=== PATIENT | female | born 2000 | race African-American/Black ===

== ENCOUNTER 2022-10-12 20:35 | Emergency (ER) | payer BC, SELFPAY ==
--- NOTE | ~2022-10-12 | XR_ITS ---
EXAMINATION: XR ankle RT min 3V DATE: 10/12/2022 20:57 INDICATION: Ankle injury and pain. TECHNIQUE: 4 views of right ankle were obtained. COMPARISON: None. FINDINGS: Bone alignment is normal. No fracture. Joint spaces are normal. There is ankle soft tissue swelling. IMPRESSION: 1. No fracture. Reviewed, dictated and finalized at location E. IMPRESSION: 1. No fracture.
[2022-10-12 20:37] VITALS: BP 147/84; PULSE 90; RESP 14; TEMP 36.2; O2SAT 100
--- NOTE | 2022-10-12 21:23 | ED.LOWEXIN ---
HPI - Extremity Injury (Lower) General Chief Complaint: Extremity Injury, Lower <Nenita Wyman PA-C - Last Filed: 10/12/22 21:28> Stated Complaint: R ankle pain <MALORIE Aden Last Filed: 10/12/22 21:28> Time Seen by Provider: 10/12/22 20:44 <MALORIE Aden Last Filed: 10/12/22 21:28> History of Present Illness HPI Narrative: 22-year-old female reports for evaluation for right ankle pain x4 days. Patient states 4 days ago, she was going down the stairs and accidentally inverted her ankle. She is reporting pain to her lateral malleolus. States she has been ambulating since the incident. She denies paresthesias, edema, other pain to her lower extremity. <Nenita Wyman PA-C - Last Filed: 10/12/22 21:28> Related Data Allergies/Adverse Reactions: Allergies Allergy/AdvReac Type Severity Reaction Status Date / Time No Known Allergies Allergy Verified 10/12/22 20:40 <MALORIE Aden Last Filed: 10/12/22 21:28> Review of Systems Review of Systems: CONSTITUTIONAL: Denies fever, chills EYES: Denies visual changes, redness, or discharge. ENT: Denies rhinorrhea, congestion, sore throat, or otalgia. CARDIOVASCULAR: Denies chest pain, palpitations, or edema. RESPIRATORY: Denies cough or dyspnea. GASTROINTESTINAL: Denies abdominal pain, nausea, vomiting, or diarrhea. GENITOURINARY: Denies dysuria or hematuria. SKIN: Denies rash or itching. MUSCULOSKELETAL: See HPI NEUROLOGIC: Denies headache, numbness, dizziness, or weakness. PSYCHIATRIC: Denies anxiety or depression. <MALORIE Aden Last Filed: 10/12/22 21:28> Exam Narrative: GENERAL: Well-appearing, in no acute distress. Patient resting comfortably in exam bed. She is pleasant and conversational. HEAD: Normocephalic NECK: Supple. CHEST: No respiratory distress. Clear to auscultation, no adventitious breath sounds. HEART: Regular rate and rhythm. No murmur heard. Normal peripheral pulses. EXTREMITIES: Tenderness over the right lateral malleolus without edema, ecchymosis, warmth. No tenderness to remainder of lower extremity. No tenderness to proximal tibia or fibula. Negative Cantor's. DP pulse 2+. Cap refill less than 2. Sensation intact throughout. Full range of motion of ankle and toes. She is ambulatory. SKIN: Warm, dry, no rash. NEURO: No focal deficits. Alert and oriented x3. PSYCH: Normal mood and affect. <Nenita Wyman PA-C - Last Filed: 10/12/22 21:28> Course OFFENDER JOB RETENTION SPECIALIST/PA Physician Supervision This is a was performed by both a physician and an APC. I performed all aspects of the MDM as documented w/ the following additions: 22-year-old presenting with ankle pain. She is ambulatory. X-rays negative. Patient discharged with ankle sprain instructions. All questions answered. Patient in agreement w/ disposition. <Guero Shen MD - Last Filed: 10/13/22 06:05> Vital Signs Vital signs: Vital Signs Temperature 97.2 F L 10/12/22 20:37 Pulse Rate 90 10/12/22 20:37 Respiratory Rate 14 10/12/22 20:37 Blood Pressure 147/84 H 10/12/22 20:37 Pulse Oximetry 100 10/12/22 20:37 Oxygen Delivery Room Air 10/12/22 20:37 Temperature 97.2 F L 10/12/22 20:37 Pulse Rate 90 10/12/22 20:37 Respiratory Rate 14 10/12/22 20:37 Blood Pressure 147/84 H 10/12/22 20:37 Pulse Oximetry 100 10/12/22 20:37 Oxygen Delivery Room Air 10/12/22 20:37 <Nenita Wyman PA-C - Last Filed: 10/12/22 21:28> Vital Signs Temperature 97.2 F L 10/12/22 20:37 Pulse Rate 90 10/12/22 20:37 Respiratory Rate 14 10/12/22 20:37 Blood Pressure 147/84 H 10/12/22 20:37 Pulse Oximetry 100 10/12/22 20:37 Oxygen Delivery Room Air 10/12/22 20:37 Temperature 97.2 F L 10/12/22 20:37 Pulse Rate 90 10/12/22 20:37 Respiratory Rate 14 10/12/22 20:37 Blood Pressure 147/84 H 10/12/22 20:37 Pulse Oximetry 100 10/12/22 20:37
== END 2022-10-12 21:44 | disposition home or self-care (01) ==
PROVIDERS: Emergency Provider Physician Assistant
DX: S93.401A Sprain of unspecified ligament of right ankle, initial encounter (principal); S96.911A Strain of unspecified muscle and tendon at ankle and foot level, right foot, initial encounter; X50.9XXA Other and unspecified overexertion or strenuous movements or postures, initial encounter
CPT/HCPCS: 73610; 99283

== ENCOUNTER 2023-06-11 09:33 | Emergency (ER) | payer OTHER, SELFPAY ==
[2023-06-11 10:03] VITALS: BP 120/88; PULSE 112; RESP 16; TEMP 36.7; O2SAT 100
[2023-06-11 11:09] LABS: Strep Group A RT-PCR NOT DETECTED (Negative)
[2023-06-11 11:18] VITALS: BP 131/94; PULSE 99; RESP 19; TEMP 36.7; O2SAT 100; O2SAT 99
[2023-06-11 11:19] LABS: Influenza A QL RT-PCR Negative (Negative); Influenza B QL RT-PCR Negative (Negative); RSV RNA, RT-PCR Negative (Negative); SARS-CoV-2 RNA PCR Negative (Negative)
--- NOTE | 2023-06-11 11:29 | ED.GENADULT ---
HPI - General Adult General Chief complaint: Unspecified Stated complaint: trouble swallowing, neck, eye, ear pain Time Seen by Provider: 06/11/23 10:14 History of Present Illness HPI narrative: 23-year-old female presents to the emergency room for acute onset of sore throat, postnasal drip, sinus congestion, cough began yesterday. Patient states that she took DayQuil yesterday with little improvement. Patient denies any shortness of breath, difficulty breathing, or fevers. Related Data Allergies Allergy/AdvReac Type Severity Reaction Status Date / Time No Known Allergies Allergy Verified 10/12/22 20:40 Review of Systems Review of Systems: CONSTITUTIONAL: Denies fever, chills, or sweats. EYES: Denies visual changes, redness, or discharge. ENT: Endorses rhinorrhea, congestion, sore throat, and otalgia. CARDIOVASCULAR: Denies chest pain, palpitations, or edema. RESPIRATORY: Endorses cough GASTROINTESTINAL: Denies abdominal pain, nausea, vomiting, or diarrhea. GENITOURINARY: Denies dysuria or hematuria. SKIN: Denies rash or itching. MUSCULOSKELETAL: Denies back pain, joint pain, or myalgia. NEUROLOGIC: Denies headache, numbness, dizziness, or weakness. PSYCHIATRIC: Denies anxiety or depression. Exam Narrative: GENERAL: Well-appearing, well-nourished, no physical limitations, and in no acute distress. HEAD: Normocephalic, atraumatic. EYES: Conjunctivae normal, PERRLA and EOMI. ENT: External nose normal, Nares clear, clear rhinorrhea. Mucous membranes moist. Oropharynx without tonsillar hypertrophy exudate or other lesions. External ears normal, bilateral TMs normal bilaterally with clear effusion the left ear NECK: Supple. No meningeal signs. No adenopathy or masses. No carotid bruits or JVD CHEST: Clear to auscultation. No respiratory distress. No wheezes rales or rhonchi. No tenderness. HEART: Regular rate and rhythm. No murmur heard. Normal peripheral pulses. EXTREMITIES: Normal range of motion. No edema. No clubbing or cyanosis SKIN: Warm, dry, no rash. No noted wounds NEURO: No focal deficits. Alert and oriented x3. MAEW. CN's II-XI intact bilaterally, normal gait PSYCH: Cooperative. Normal mood and affect. Course Vital Signs Vital signs: Vital Signs Temperature 36.7 C 06/11/23 10:03 Pulse Rate 112 H 06/11/23 10:03 Respiratory Rate 16 06/11/23 10:03 Blood Pressure 120/88 06/11/23 10:03 Pulse Oximetry 100 06/11/23 10:03 Oxygen Delivery Room Air 06/11/23 10:03 Temperature 36.7 C 06/11/23 11:18 Pulse Rate 99 06/11/23 11:18 Respiratory Rate 19 06/11/23 11:18 Blood Pressure 131/94 H 06/11/23 11:18 Pulse Oximetry 100 06/11/23 11:18 Oxygen Delivery Room Air 06/11/23 11:18 Medical Decision Making MDM Narrative Medical decision making narrative: Nontoxic 23-year-old female present to the emergency room with URI symptoms. COVID, flu strep POC is negative. Patient likely has a viral URI. Encouraged patient to take Sudafed 30 mg tablets every 4-6 hours. Will provide cough syrup and a short course of steroids. Discussed course of illness with patient, likely will have symptoms for 10-12 days. Vital Signs Vital Signs: Vital Signs Temperature 36.7 C 06/11/23 10:03 Pulse Rate 112 H 06/11/23 10:03 Respiratory Rate 16 06/11/23 10:03 Blood Pressure 120/88 06/11/23 10:03 Pulse Oximetry 100 06/11/23 10:03 Oxygen Delivery Room Air 06/11/23 10:03 Temperature 36.7 C 06/11/23 11:18 Pulse Rate 99 06/11/23 11:18 Respiratory Rate 19 06/11/23 11:18 Blood Pressure 131/94 H 06/11/23 11:18 Pulse Oximetry 100 06/11/23 11:18 Oxygen Delivery Room Air 06/11/23 11:18 Lab Data Labs: Lab Results 06/11/23 Range/Units 10:33 Influenza A (RT-PCR) Negative (Negative) Influenza B (RT-PCR) Negative (Negative) RSV (RT-PCR) Negative (Negative) SARS-CoV-2 RNA (RT-PCR) Negative (Negative) Group A Strep (PCR) Not
[2023-06-11 11:43] VITALS: BP 128/83; PULSE 89; RESP 17; TEMP 36.7; O2SAT 100
== END 2023-06-11 11:45 | disposition home or self-care (01) ==
PROVIDERS: Emergency Provider Nurse Practitioner Family
DX: J06.9 Acute upper respiratory infection, unspecified (principal); Z20.822 Contact with and (suspected) exposure to COVID-19
CPT/HCPCS: 87637; 87651; 99283

== ENCOUNTER 2023-08-11 10:01 | Emergency (ER) | payer OTHER, SELFPAY ==
[2023-08-11 10:04] VITALS: BP 130/87; PULSE 78; RESP 18; TEMP 37.1; O2SAT 99
[2023-08-11 10:32] VITALS: BP 134/87; PULSE 84; RESP 16; TEMP 36.7; O2SAT 98
--- NOTE | 2023-08-11 10:52 | ED_ITS ---
HPI - Eye Problem General Chief complaint: Eye Problems Stated complaint: eye scratch Time Seen by Provider: 08/11/23 10:14 History of Present Illness HPI Narrative: Pt presents with eye discomfort and redness after getting lashes put on eyes. Pt thinks maybe her eye got scratched. Pt denies blurred vison or MCCOY. Related Data Allergies Allergy/AdvReac Type Severity Reaction Status Date / Time No Known Allergies Allergy Verified 08/11/23 10:11 Review of Systems Review of Systems: All systems reviewed & are unremarkable except as noted in HPI and below Exam Const: General: healthy appearing and no acute distress Nutritional Appear ance: well nourished Orientation/consciousness: patient oriented x3 Limitations: no limitations Eyes: Conjunctivae: conjunctival abnormality right (injected lower eye only where lower lid touches sclera) conjunctival injection Pupils: Equal, round and reactive pupils present EOM: EOMs intact bilaterally Direct Ophthalmoscopy: no photophobia Course Vital Signs Vital signs: Vital Signs Temperature 98.8 F 08/11/23 10:04 Pulse Rate 78 08/11/23 10:04 Respiratory Rate 18 08/11/23 10:04 Blood Pressure 130/87 08/11/23 10:04 Pulse Oximetry 99 08/11/23 10:04 Oxygen Delivery Room Air 08/11/23 10:04 Temperature 98.1 F 08/11/23 10:32 Pulse Rate 84 08/11/23 10:32 Respiratory Rate 16 08/11/23 10:32 Blood Pressure 134/87 08/11/23 10:32 Pulse Oximetry 98 08/11/23 10:32 Oxygen Delivery Room Air 08/11/23 10:04 Procedures Other Procedure Procedure 1: Other Procedure: tetracaine and fluorescein applied. right eye observed under slit lamp and UV light no corneal abrasion or FB noted. MDM - Eye Problem MDM Narrative Medical decision making narrative: Pt has no eveidence of corneal abrasion or FB on slit lamp. suspect allergic rxn home on topical antihistamines and antibiotics Discharge Plan Discharge Clinical Impression: Allergic conjunctivitis Patient Disposition: Home, Self-Care Condition: Stable Instructions: Antibiotic Form, Conjunctivitis (ED) Prescriptions: New olopatadine [Pataday Once Daily Relief] 0.2 % drops 1 drp RIGHT EYE DAILY Qty: 2.5 0RF gentamicin 0.3 % drops 1 drp RIGHT EYE Q4H Qty: 5 0RF No Action prednisone 20 mg tablet 60 mg PO DAILY 5 Days Qty: 15 0RF promethazine-DM 6.25-15 mg/5 mL syrup 5 ml PO Q4-6H PRN (Reason: cough) Qty: 118 0RF Follow-up/Referrals: UNKNOWN,DOCTOR [Primary Care Provider] - Stand Alone Forms: Work/School Release IP
== END 2023-08-11 11:14 | disposition home or self-care (01) ==
LOC: ANHED 11:10
PROVIDERS: Emergency Provider Emergency Medicine
DX: H10.11 Acute atopic conjunctivitis, right eye (principal)
CPT/HCPCS: 99283; A9270

== ENCOUNTER 2023-09-14 08:43 | Outpatient (CLI) | payer OTHER, SELFPAY ==
[2023-09-14 15:11] LABS: Hematocrit 41.5 % (37.0-47.0); Hemoglobin 12.8 g/dL (12.0-15.0); Mean Corpuscular HGB Conc 30.8 g/dl (32-36); Mean Corpuscular Hemoglobin 28.9 pg (26-34); Mean Corpuscular Volume 93.7 fl (80-100); Mean Platelet Volume 9.6 fl (7.4-10.4); Platelet Count Result 355 k/mm3 (150-375); Red Blood Count 4.43 M/mm3 (4.2-5.4); Red Cell Distribution Width 12.9 % (11.5-14.5); White Blood Count 6.2 K/mm3 (4.5-10.0)
[2023-09-14 15:22] LABS: Alanine Aminotransferase 43 U/L (6-35); Albumin Level 4.3 g/dL (3.5-5.1); Alkaline Phosphatase 74 U/L (38-126); Anion Gap 11 mmol/L (4-12); Aspartate Amino Transferase 62 U/L (14-36); Bilirubin,Total 0.3 mg/dL (0.2-1.3); Blood Urea Nitrogen 17 mg/dL (7-17); Calcium 9.3 mg/dL (8.4-10.2); Carbon Dioxide 23 mmol/L (22-30); Chloride 103 mmol/L (98-107); Cholesterol 145 mg/dL (0-200); Estimated Glomerular Filt Rate > 60; Glucose 70 mg/dL (65-110); HDL Direct 74 mg/dL; Potassium 3.8 mmol/L (3.4-5.0); Sodium 137 mmol/L (137-145); Triglycerides 40 mg/dL (<150)
[2023-09-14 15:34] LABS: LDL Cholesterol Direct 59 mg/dL
[2023-09-15 08:57] LABS: Hemoglobin A1C 5.6 % (<5.7)
== END 2023-09-14 08:44 | disposition home or self-care (01) ==
LOC: ANHGOSHLAB 08:45
PROVIDERS: Visit Provider Nurse Practitioner Family
DX: R51.9 Headache, unspecified (principal); M25.512 Pain in left shoulder; Z76.89 Persons encountering health services in other specified circumstances; Z68.27 Body mass index [BMI] 27.0-27.9, adult; M54.50 Low back pain, unspecified; Z13.0 Encounter for screening for diseases of the blood and blood-forming organs and certain disorders involving the immune mechanism; Z13.228 Encounter for screening for other metabolic disorders; Z13.1 Encounter for screening for diabetes mellitus; Z13.220 Encounter for screening for lipoid disorders
CPT/HCPCS: 36415; 80053; 80061; 83036; 85027

== ENCOUNTER 2023-10-05 12:31 | Outpatient (CLI) | payer OTHER, SELFPAY | END 2023-10-05 12:32 | disposition home or self-care (01) | LOC: ANHLAB 12:34 | PROVIDERS: Visit Provider Obstetrics & Gynecology | DX: O26.859 Spotting complicating pregnancy, unspecified trimester (principal); Z3A.00 Weeks of gestation of pregnancy not specified | CPT/HCPCS: 36415; 84702; 85461; 86850; 86900; 86901 ==

== ENCOUNTER 2023-10-07 12:15 | Outpatient (CLI) | payer OTHER, SELFPAY | END 2023-10-07 12:16 | disposition home or self-care (01) | LOC: ANHLAB 12:17 | PROVIDERS: Visit Provider Obstetrics & Gynecology | DX: O20.0 Threatened abortion (principal) | CPT/HCPCS: 36415; 84702 ==

== ENCOUNTER 2023-10-23 12:01 | Emergency (ER) | payer OTHER, SELFPAY ==
--- NOTE | ~2023-10-23 | US_ITS ---
US OB <=14 wk fetus w TV Ordering provider: Eileen Cedeno PA-C History: . 4 weeks, miscarriage . Comparison: None. Technique: Transabdominal and endovaginal ultrasound of the pelvis (Doppler ultrasound interrogation techniques used as needed for this exam.) FINDINGS: CERVIX: Normal. UTERUS: Measures 7.3x 3.6x 5.9 cm in length which is within normal limits and is anteverted. No myom etrial masses. Possible arcuate or septate uterus. ENDOMETRIUM: Measures 6 mm. No intrauterine . Heterogenous echogenicity is noted which is mo st likely blood products. CUL DE SAC: No free fluid. RIGHT OVARY: Normal in size measuring 2.4x 1.2x 2.1 centimeter. Normal echotexture. Doppler vascular flow present. LEFT OVARY: Normal in size measuring 3.2x 1.1x 2.4 cm. Normal echotexture. Doppler vascular flow pres ent. ADNEXA: Normal. No mass. IMPRESSION: Highly suggestive of arcuate uterus with endometrial blood products. Clinical correlation advised. No intrauterine . Otherwise, normal pelvic ultrasound. Reviewed, dictated and finalized at location A. IMPRESSION: Highly suggestive of arcuate uterus with endometrial blood products. Clinical c orrelation advised. No intrauterine . Otherwise, normal pelvic ultraso und.
[2023-10-23 13:22] VITALS: BP 129/79; PULSE 78; RESP 16; TEMP 36.6; O2SAT 100
--- NOTE | 2023-10-23 14:20 | ED.PREGNANCY ---
HPI - General Chief complaint: Vaginal Bleeding <MALORIE Pina Last Filed: 10/23/23 19:03> Stated complaint: vaginal bleeding <MALORIE Pina Last Filed: 10/23/23 19:03> Time Seen by Provider: 10/23/23 14:21 <Eileen Cedeno PA-C - Last Filed: 10/23/23 19:03> Focused HPI: Patient is a 23-year-old female, with pmh of anemia, presents the ED with report of vaginal bleeding. Patient is and was approximately 4 weeks gestation. LNMP was at the end of July. She states she has been diagnosed with a miscarriage by [facility] [place]. Was Rx'd vaginal misoprostol 1 week ago and took this as prescribed. She has been having bleeding since last , but states this has become heavier to the point she is not passing large clots. She also reports feeling slightly dizzy and lightheaded with movement. She was sent here for further evaluation and to have her beta hcg level rechecked. Currently seeing Dr. Mccloud with OBGYN GENERAL: Well-appearing, well-nourished, and in no acute distress. HEAD: Normocephalic, atraumatic. CHEST: Clear to auscultation. ?No respiratory distress. HEART: Regular rate and rhythm.? NEURO: ?Alert and oriented x3. Patient screened in triage and initial orders placed.? ?Additional care and disposition to be based upon?diagnostic testing and treatment. <MALORIE Pina Last Filed: 10/23/23 19:03> Source: patient <MALORIE Pina Last Filed: 10/23/23 19:03> Mode of arrival: ambulatory <MALORIE Pina Last Filed: 10/23/23 19:03> Limitations: no limitations <MALORIE Pina Last Filed: 10/23/23 19:03> Related Data Home medications: Home Medications Medication Instructions Recorded Confirmed ferrous sulfate 325 mg (65 mg mg PO 09/02/23 10/21/23 iron) tablet (FeroSul) vit no.95-ferrous tablet PO 09/02/23 10/21/23 fumarate 28 mg-folic acid 800 mcg tablet () <Eileen Cedeno PA-C - Last Filed: 10/23/23 19:03> Allergies/Adverse reactions: Allergies Allergy/AdvReac Type Severity Reaction Status Date / Time No Known Allergies Allergy Verified 10/21/23 13:38 <Eileen Cedeno PA-C - Last Filed: 10/23/23 19:03> Review of Systems Review of Systems: CONSTITUTIONAL: Denies fever GASTROINTESTINAL: Reports pelvic cramping <Vesta Phillip PA-C - Last Filed: 10/23/23 19:20> All systems reviewed & are unremarkable except as noted in HPI and below <Vesta Phillip PA-C - Last Filed: 10/23/23 19:20> PMFSH Past Medical History Medical History: Medical History (Updated 10/23/23 @ 19:11 by Vesta Phillip PA-C) Iron deficiency anemia <Eileen Cedeno PA-C - Last Filed: 10/23/23 19:03> Family History Family History: Family History (Updated 09/02/23 @ 13:40 by Rain Storey) Grandparent Cancer Grandparent Cancer <Eileen Cedeno PA-C - Last Filed: 10/23/23 19:03> Social History Social History: Social History (Updated 09/02/23 @ 13:41 by Rain Storey) Smoking status: Never smoker Alcohol intake: current Substance use: unknown <Eileen Cedeno PA-C - Last Filed: 10/23/23 19:03> Exam Narrative: GENERAL: Well-appearing, well-nourished, and in no acute distress. HEAD: Normocephalic, atraumatic. EYES: EOMI. CHEST: No respiratory distress. HEART: Regular rate ABDOMEN: Soft, nontender, nondistended, normal active bowel sounds. EXTREMITIES: Normal range of motion. No edema. SKIN: Warm, dry, no rash. NEURO: No focal deficits. Alert and oriented x3. PSYCH: Normal mood and affect PELVIC: Scant amount of pink/red blood in the vaginal vault, cervix open <Vesta Phillip PA-C - Last Filed: 10/23/23 19:20> Course Course Emergency Course: Patient updated on workup and agrees with plan of care <Vesta Phillip PA-C - Last Filed:
[2023-10-23 14:58] LABS: Add Urine Microscopic? YES; Appearance Urine Clear (Clear); Bacteria Urine None Seen /hpf; Bilirubin Urine Negative (Negative); Blood Urine 2+ (Negative); Color Urine Yellow (Yellow); Glucose Urine UA Negative (Negative); Ketones Urine Negative (Negative); Leukocyte Esterase Ur Negative LEU/UL (Negative); Nitrate Urine Negative (Negative); Non Pathogenic Casts 0-2; Protein Urine Negative (Negative); RBC Urine 0-2 /hpf (0-2); Specific Grav Ur 1.014 (1.001-1.035); Squamous Epithelial Cell Urine Few /hpf (Few); Urobilinogen Urine 0.2 mg/dL (<2.0); WBC Urine 0-5 /hpf (0-3); pH Urine 7.5 (5.0-9.0)
[2023-10-23 15:06] LABS: Basophils Percent Auto 0.7 % (0.2-1.2); Eosinophils Absolute Auto 0.1 K/mm3 (0-0.3); Eosinophils Percent Auto 1.2 % (0-4.4); Hematocrit 40.9 % (37.0-47.0); Hemoglobin 13.3 g/dL (12.0-15.0); Immature Granulocyte Absolute 0.02 K/mm3 (0.00-0.031); Immature Granulocyte Percent A 0.3 % (0-0.5); Lymphocytes Absolute Auto 2.26 K/mm3 (0.9-3.2); Lymphocytes Percent Auto 39.4 % (18.3-44.2); Mean Corpuscular HGB Conc 32.5 g/dl (32-36); Mean Corpuscular Volume 92.3 fl (80-100); Mean Platelet Volume 8.8 fl (7.4-10.4); Monocytes Absolute Auto 0.3 K/mm3 (0.1-0.6); Monocytes Percent Auto 5.9 % (2.6-8.5); Neutrophils Percent Auto 52.5 % (45.5-73.1); Platelet Count Result 366 k/mm3 (150-375); Red Blood Count 4.43 M/mm3 (4.2-5.4); Red Cell Distribution Width 12.1 % (11.5-14.5); White Blood Count 5.7 K/mm3 (4.5-10.0)
[2023-10-23 15:28] LABS: Alanine Aminotransferase 41 U/L (6-35); Albumin Level 4.3 g/dL (3.5-5.1); Alkaline Phosphatase 67 U/L (38-126); Anion Gap 9 mmol/L (4-12); Aspartate Amino Transferase 33 U/L (14-36); Bilirubin,Total 0.1 mg/dL (0.2-1.3); Blood Urea Nitrogen 9 mg/dL (7-17); Calcium 9.5 mg/dL (8.4-10.2); Carbon Dioxide 28 mmol/L (22-30); Chloride 101 mmol/L (98-107); Estimated CRCL calculation 90 ml/min; Estimated Glomerular Filt Rate > 60; Glucose 118 mg/dL (65-110); Potassium 3.4 mmol/L (3.4-5.0); Sodium 138 mmol/L (137-145)
[2023-10-23 15:29] LABS: Partial Thromboplastin Time 25.8 Seconds (22.3-36.8); Prothrombin Time 13.7 Seconds (11.1-14.7)
[2023-10-23 15:44] LABS: Beta HCG Quantitative 258.87 mIU/ML
[2023-10-23 18:32] VITALS: BP 125/87; PULSE 85; RESP 20; O2SAT 100
[2023-10-23 18:46] VITALS: BP 127/87; PULSE 92; RESP 20; O2SAT 100
[2023-10-23 19:31] VITALS: BP 121/79; PULSE 82; RESP 18; O2SAT 100
[2023-10-23 19:46] VITALS: BP 113/83; PULSE 86; RESP 22; O2SAT 100
[2023-10-23 19:58] VITALS: BP 113/83; PULSE 94; RESP 19; TEMP 36.8; O2SAT 100
== END 2023-10-23 19:59 | disposition home or self-care (01) ==
PROVIDERS: Physician Assistant; Emergency Provider Physician Assistant; PCP Nurse Practitioner Family
DX: O03.4 Incomplete spontaneous abortion without complication (principal)
CPT/HCPCS: 36415; 76801; 76817; 80053; 81001; 84702; 85025; 85461; 85610; 85730; 86850; 86900; 86901; 99284

== ENCOUNTER 2023-11-04 08:41 | Outpatient (CLI) | payer OTHER, SELFPAY ==
[2023-11-04 19:33] LABS: Basophils Percent Auto 0.6 % (0.2-1.2); Eosinophils Absolute Auto 0.1 K/mm3 (0-0.3); Eosinophils Percent Auto 1.4 % (0-4.4); Hematocrit 40.6 % (37.0-47.0); Hemoglobin 12.6 g/dL (12.0-15.0); Immature Granulocyte Absolute 0.03 K/mm3 (0.00-0.031); Immature Granulocyte Percent A 0.6 % (0-0.5); Lymphocytes Absolute Auto 1.89 K/mm3 (0.9-3.2); Lymphocytes Percent Auto 38.1 % (18.3-44.2); Mean Corpuscular Hemoglobin 29.1 pg (26-34); Mean Corpuscular Volume 93.8 fl (80-100); Mean Platelet Volume 9.8 fl (7.4-10.4); Monocytes Absolute Auto 0.5 K/mm3 (0.1-0.6); Monocytes Percent Auto 10.1 % (2.6-8.5); Neutrophils Absolute Auto 2.4 K/mm3 (1.3-6.7); Neutrophils Percent Auto 49.2 % (45.5-73.1); Platelet Count Result 372 k/mm3 (150-375); Red Blood Count 4.33 M/mm3 (4.2-5.4); Red Cell Distribution Width 12.4 % (11.5-14.5)
[2023-11-04 19:43] LABS: Iron 156 ug/dL (37-170)
[2023-11-04 19:52] LABS: Percent Iron Saturation 48 % (20-50)
[2023-11-04 21:19] LABS: Alanine Aminotransferase 41 U/L (6-35); Albumin Level 4.3 g/dL (3.5-5.1); Alkaline Phosphatase 66 U/L (38-126); Anion Gap 10 mmol/L (4-12); Aspartate Amino Transferase 40 U/L (14-36); Bilirubin,Total 0.2 mg/dL (0.2-1.3); Blood Urea Nitrogen 18 mg/dL (7-17); Calcium 9.2 mg/dL (8.4-10.2); Carbon Dioxide 25 mmol/L (22-30); Chloride 102 mmol/L (98-107); Estimated Glomerular Filt Rate > 60; Glucose 86 mg/dL (65-110); Potassium 4.1 mmol/L (3.4-5.0); Sodium 137 mmol/L (137-145)
== END 2023-11-04 08:42 | disposition home or self-care (01) ==
LOC: ANHGOSHLAB 08:42
PROVIDERS: PCP Nurse Practitioner Family; Visit Provider Nurse Practitioner Family
DX: O03.9 Complete or unspecified spontaneous abortion without complication (principal); R74.8 Abnormal levels of other serum enzymes; I95.1 Orthostatic hypotension
CPT/HCPCS: 36415; 80053; 82248; 82728; 83540; 83550; 85025

== ENCOUNTER 2023-11-04 14:21 | Emergency (ER) | payer OTHER, SELFPAY ==
[2023-11-04 14:24] VITALS: BP 148/88; PULSE 88; RESP 16; TEMP 36.8; O2SAT 100
[2023-11-04 16:00] VITALS: BP 126/78; PULSE 78; RESP 16; TEMP 36.6; O2SAT 100
--- NOTE | 2023-11-04 16:08 | ECG_ITS ---
Test Date: 2023-11-04 16:37:32 Measurements Intervals Ackley Rate: 78 P: 49 MD: 131 QRS: 38 QRSD: 75 T: 28 QT: 376 QTc: 430 Interpretive Statements SINUS RHYTHM NONSPECIFIC T-WAVE ABNORMALITY- ANTERIOR LEADS BORDERLINE ECG No previous ECG available for comparison Electronically Signed On 11-04-2023 20:08:42 CDT by Sid Plunkett D.O.
[2023-11-04] MEDS: ONDANSETRON HCL ODT 4 MG TABLET PO (16:21)
[2023-11-04] MEDS: LACTATED RINGERS 1,000 ML 999 ML IV CONT (16:50)
[2023-11-04 17:00] VITALS: BP 126/80; PULSE 74; RESP 16; TEMP 36.6; O2SAT 100
[2023-11-04 17:05] LABS: Basophils Percent Auto 0.4 % (0.2-1.2); Eosinophils Absolute Auto 0.1 K/mm3 (0-0.3); Eosinophils Percent Auto 0.7 % (0-4.4); Hematocrit 42.6 % (37.0-47.0); Hemoglobin 13.2 g/dL (12.0-15.0); Immature Granulocyte Absolute 0.02 K/mm3 (0.00-0.031); Immature Granulocyte Percent A 0.3 % (0-0.5); Lymphocytes Absolute Auto 2.22 K/mm3 (0.9-3.2); Lymphocytes Percent Auto 32.6 % (18.3-44.2); Mean Corpuscular Hemoglobin 28.5 pg (26-34); Mean Platelet Volume 9.2 fl (7.4-10.4); Monocytes Absolute Auto 0.6 K/mm3 (0.1-0.6); Monocytes Percent Auto 8.2 % (2.6-8.5); Neutrophils Absolute Auto 3.9 K/mm3 (1.3-6.7); Neutrophils Percent Auto 57.8 % (45.5-73.1); Platelet Count Result 404 k/mm3 (150-375); Red Blood Count 4.63 M/mm3 (4.2-5.4); Red Cell Distribution Width 12.5 % (11.5-14.5); White Blood Count 6.8 K/mm3 (4.5-10.0)
[2023-11-04 17:19] LABS: Alanine Aminotransferase 44 U/L (6-35); Albumin Level 4.7 g/dL (3.5-5.1); Alkaline Phosphatase 76 U/L (38-126); Anion Gap 9 mmol/L (4-12); Aspartate Amino Transferase 38 U/L (14-36); Bilirubin,Total 0.3 mg/dL (0.2-1.3); Blood Urea Nitrogen 14 mg/dL (7-17); Calcium 9.6 mg/dL (8.4-10.2); Carbon Dioxide 27 mmol/L (22-30); Chloride 101 mmol/L (98-107); Estimated Glomerular Filt Rate > 60; Glucose 89 mg/dL (65-110); Potassium 3.7 mmol/L (3.4-5.0); Sodium 137 mmol/L (137-145)
[2023-11-04 17:35] LABS: Beta HCG Quantitative 9.87 mIU/ML
--- NOTE | 2023-11-04 17:55 | ED.DIZZY ---
HPI - Dizziness General Chief Complaint: Dizziness Stated Complaint: dizziness Time Seen by Provider: 11/04/23 16:08 History of Present Illness HPI Narrative: Patient presents here with some slight lightheadedness and nausea, this happened while she was walking to work. She will get a sensation that she feels like she may pass out. This has been ongoing for multiple weeks. No chest pain, shortness of breath, is worse when she is walking or standing, does not think she has any cough or urinary symptoms, she would like to be checked her beta hcg / hormone. Related Data Home Medications Medication Instructions Recorded Confirmed ferrous sulfate 325 mg (65 mg mg PO 09/02/23 10/21/23 iron) tablet (FeroSul) vit no.95-ferrous tablet PO 09/02/23 10/21/23 fumarate 28 mg-folic acid 800 mcg tablet () Allergies Allergy/AdvReac Type Severity Reaction Status Date / Time No Known Allergies Allergy Verified 11/04/23 14:26 Review of Systems Review of Systems: All systems reviewed & are unremarkable except as noted in HPI and below PMFSH Past Medical History Medical History Iron deficiency anemia Family History Family History Grandparent Cancer Grandparent Cancer Social History Social History Smoking status: Never smoker Alcohol intake: current Substance use: unknown Agree to blood products: Yes Exam Narrative: EXAMINATION OF ORGAN SYSTEMS/BODY AREAS: Constitutional: Vital signs per nursing GENERAL:[No acute distress, non-toxic appearing.] HEAD: Normal with no signs of head trauma. EYES: EOMI, conjunctiva normal ENT: Hearing grossly intact LUNGS: Nonlabored breathing. HEART: [Regular rate and rhythm] ABD: No distension EXT: Normal range of motion SKIN: [No rashes or lesions.] NEURO: [Alert and oriented x 3. No gross focal sensory or strength deficits.] Clear speech. Ambulating with normal steady gait PSYCH: Normal affect Course Vital Signs Vital signs: Vital Signs Temperature 98.2 F 11/04/23 14:24 Pulse Rate 88 11/04/23 14:24 Respiratory Rate 16 11/04/23 14:24 Blood Pressure 148/88 H 11/04/23 14:24 Pulse Oximetry 100 11/04/23 14:24 Oxygen Delivery Room Air 11/04/23 14:24 Temperature 97.8 F 11/04/23 17:00 Pulse Rate 74 11/04/23 17:00 Respiratory Rate 16 11/04/23 17:00 Blood Pressure 126/80 11/04/23 17:00 Pulse Oximetry 100 11/04/23 17:00 Oxygen Delivery Room Air 11/04/23 14:24 MDM - Dizziness MDM Narrative Medical decision making narrative: Patient presenting here with dizziness for last month and some slight nausea, she has also had a repeat hCG. Labs are within acceptable limits, her HCG is now almost not detectable, EKG here shows normal sinus rhythm rate 78, RI QRS, QTC intervals normal, no ST elevations depressions, on my independent interpretation essentially normal EKG. Fluids given, and on re-evaluation she states she feels better. She is ambulating with steady gait, to and from the bathroom I do feel she is stable for discharge with return precautions and follow-up to PCP, she is agreeable to this plan. Lab Data 11/04/23 16:53 11/04/23 16:53 Labs: Lab Results 11/04/23 Range/Units 16:53 WBC 6.8 (4.5-10.0) K/mm3 RBC 4.63 (4.2-5.4) M/mm3 Hgb 13.2 (12.0-15.0) g/dL Hct 42.6 (37.0-47.0) % MCV 92.0 (80-100) fl MCH 28.5 (26-34) pg MCHC 31.0 L (32-36) g/dl RDW 12.5 (11.5-14.5) % Plt Count 404 H (150-375) k/mm3 MPV 9.2 (7.4-10.4) fl Immature Gran % (Auto) 0.3 (0-0.5) % Neut % (Auto) 57.8 (45.5-73.1) % Lymph % (Auto) 32.6 (18.3-44.2) % Harvey % (Auto) 8.2 (2.6-8.5) % Eos % (Auto) 0.7 (0-4.4) % Baso % (Auto) 0.4 (0.2-1.2) % Lymph # (Auto) 2.22 (0.9-3.2
== END 2023-11-04 18:03 | disposition home or self-care (01) ==
PROVIDERS: Emergency Provider Emergency Medicine; PCP Nurse Practitioner Family
DX: R42 Dizziness and giddiness (principal)
CPT/HCPCS: 36415; 80053; 82248; 82728; 83540; 83550; 84702; 85025; 93005; 96360; 99283; A9270; J7120

== ENCOUNTER 2023-11-10 10:18 | Emergency (ER) | payer OTHER, SELFPAY ==
--- NOTE | ~2023-11-10 | XR_ITS ---
EXAMINATION: XR chest 2V Exam Date/Time: 11/10/2023 15:10 CDT HISTORY: chest pain, ANXIETY Comparison: 02/25/2023. RESULT: Lines, tubes, and devices: None. Lungs and pleura: Clear. Cardiomediastinal silhouette: Stable. Other: No acute osseous or upper abdominal finding. IMPRESSION: No acute cardiopulmonary process. Reviewed, dictated and finalized at location K.
[2023-11-10 10:27] VITALS: BP 142/89; PULSE 95; RESP 18; TEMP 36.5; O2SAT 98
--- NOTE | 2023-11-10 14:29 | ED.DIZZY ---
HPI - Dizziness General Chief Complaint: Dizziness <Nenita Wyman PA-C - Last Filed: 11/10/23 14:40> Stated Complaint: lightheadedness <Nenita Wyman PA-C - Last Filed: 11/10/23 14:40> Time Seen by Provider: 11/10/23 16:15 <Nenita Wyman PA-C - Last Filed: 11/10/23 14:40> Focused HPI: 23-year-old female with no past medical history presents to the emergency department for lightheadedness and dizziness for several weeks. Patient had a positive test in the beginning of September. She started spotting was felt she is having a miscarriage, was prescribed Cipro stool which she took began having heavy bleeding. She is seen in our emergency department October 22 where workup was significant for being positive blood and endometrial blood products concerning for incomplete . Patient was advised follow-up with her OBGYN. OB is Dr. Mccloud . She has been having serial HCGs checked which have been down trending and states her vaginal bleeding discontinued a couple weeks ago. She reports intermittent bloody discharge. She is also reporting lower abdominal cramping. She states when she is standing for long periods of time or walking she becomes very lightheaded and feels like she is going to pass out but has not passed out. She is also reporting some chest pain that is in the center of her chest and worse when she is anxious and stressed. She denies lower extremity edema, recent sores recent hospitalizations, history of DVT or hemoptysis, cough or congestion, fever. She is PERC negative. GENERAL: Well-appearing, well-nourished, and in no acute distress. HEAD: Normocephalic, atraumatic. CHEST: Clear to auscultation. ?No respiratory distress. ABD: Normoactive bowel sounds. Abdomen soft with no tenderness. No rebound guarding or rigidity. CVA tenderness. HEART: Regular rate and rhythm.? NEURO: ?Alert and oriented x3. Patient screened in triage and initial orders placed.? ?Additional care and disposition to be based upon?diagnostic testing and treatment. <Nenita Wyman PA-C - Last Filed: 11/10/23 14:40> Source: patient and family (grandmother) <Ann Mayer MD - Last Filed: 11/11/23 07:23> Mode of arrival: ambulatory <Ann Mayer MD - Last Filed: 11/11/23 07:23> Limitations: no limitations <Ann Mayer MD - Last Filed: 11/11/23 07:23> History of Present Illness HPI Narrative: Agree with the above with the following additions/corrections: Describes it as both a dizziness and lightheadedness. States she feels at times like she might faint but no syncope. Seen multiple times for the same. States she has followed up with her PCP Therese Webb and her ObGyn Dr Mccloud. Has not seen neuro or ENT. No disorientation/confusion. Today she also states she is having ringing in her right ear and right ear pain and pain behind her right ear. No fever. Unsure if any hearing changes. Did not have recurrent ear infections as a child. Had her first ear infection a few months ago. <Ann Mayer MD - Last Filed: 11/11/23 07:23> Related Data Home Medications: Home Medications Medication Instructions Recorded Confirmed ferrous sulfate 325 mg (65 mg mg PO 09/02/23 10/21/23 iron) tablet (FeroSul) vit no.95-ferrous tablet PO 09/02/23 10/21/23 fumarate 28 mg-folic acid 800 mcg tablet () <Nenita Wyman PA-C - Last Filed: 11/10/23 14:40> Allergies/Adverse Reactions: Allergies Allergy/AdvReac Type Severity Reaction Status Date / Time No Known Allergies Allergy Verified 11/04/23 14:26 <Nenita Wyman PA-C - Last Filed: 11/10/23 14:40> [facility] Past Medical History Medical History: Medical History Dizziness Iron deficiency anemia Light-headed <Nenita Wyman PA-C - Last Filed: 11/10/23 14:40> Family History Family History:
[2023-11-10 14:35] VITALS: BP 121/79; PULSE 88; RESP 16; O2SAT 100
[2023-11-10 14:46] LABS: Basophils Percent Auto 0.5 % (0.2-1.2); Eosinophils Absolute Auto 0.1 K/mm3 (0-0.3); Eosinophils Percent Auto 0.8 % (0-4.4); Hematocrit 42.3 % (37.0-47.0); Hemoglobin 13.7 g/dL (12.0-15.0); Immature Granulocyte Absolute 0.02 K/mm3 (0.00-0.031); Immature Granulocyte Percent A 0.3 % (0-0.5); Lymphocytes Absolute Auto 2.13 K/mm3 (0.9-3.2); Lymphocytes Percent Auto 34.1 % (18.3-44.2); Mean Corpuscular HGB Conc 32.4 g/dl (32-36); Mean Corpuscular Hemoglobin 29.7 pg (26-34); Mean Corpuscular Volume 91.8 fl (80-100); Monocytes Absolute Auto 0.4 K/mm3 (0.1-0.6); Monocytes Percent Auto 7.1 % (2.6-8.5); Neutrophils Absolute Auto 3.6 K/mm3 (1.3-6.7); Neutrophils Percent Auto 57.2 % (45.5-73.1); Platelet Count Result 364 k/mm3 (150-375); Red Blood Count 4.61 M/mm3 (4.2-5.4); Red Cell Distribution Width 12.4 % (11.5-14.5); White Blood Count 6.2 K/mm3 (4.5-10.0)
[2023-11-10 14:52] LABS: Add Urine Microscopic? NO; Appearance Urine Clear (Clear); Bilirubin Urine Negative (Negative); Blood Urine Negative (Negative); Color Urine Yellow (Yellow); Glucose Urine UA Negative (Negative); Ketones Urine Negative (Negative); Leukocyte Esterase Ur Negative LEU/UL (Negative); Nitrate Urine Negative (Negative); Protein Urine Negative (Negative); Specific Grav Ur 1.022 (1.001-1.035); Urobilinogen Urine 0.2 mg/dL (<2.0)
[2023-11-10 14:56] LABS: Prothrombin Time 13.6 Seconds (11.1-14.7)
[2023-11-10 15:03] LABS: SPREG INTERNAL CONTROL Positive; Serum Qual hCG Negative
[2023-11-10 15:09] LABS: Alanine Aminotransferase 38 U/L (6-35); Albumin Level 4.6 g/dL (3.5-5.1); Alkaline Phosphatase 72 U/L (38-126); Anion Gap 10 mmol/L (4-12); Aspartate Amino Transferase 33 U/L (14-36); Bilirubin,Total 0.3 mg/dL (0.2-1.3); Blood Urea Nitrogen 17 mg/dL (7-17); Calcium 9.5 mg/dL (8.4-10.2); Carbon Dioxide 26 mmol/L (22-30); Chloride 103 mmol/L (98-107); Estimated Glomerular Filt Rate > 60; Glucose 108 mg/dL (65-110); Lipase 128 U/L (23-300); Potassium 3.3 mmol/L (3.4-5.0); Sodium 139 mmol/L (137-145)
[2023-11-10 15:20] LABS: NT Pro B Type Natriuretic Pept < 20 pg/mL (19.9-100); Troponin I < 0.012 ng/mL (0.000-0.034)
[2023-11-10 16:30] VITALS: PULSE 93
[2023-11-10 16:31] VITALS: BP 125/82; PULSE 85; RESP 20; O2SAT 100
[2023-11-10] MEDS: POTASSIUM BICARBONATE 25 MEQ TABEF PO (17:16)
[2023-11-10] MEDS: AMOXICILLIN/CLAVULANATE K 875-125 MG TAB 1 TABLET PO (17:42)
== END 2023-11-10 17:47 | disposition home or self-care (01) ==
PROVIDERS: Physician Assistant; Emergency Provider Student in an Organized Health Care Education/Training Program; PCP Nurse Practitioner Family
DX: R42 Dizziness and giddiness (principal); H66.91 Otitis media, unspecified, right ear; E87.6 Hypokalemia; R74.01 Elevation of levels of liver transaminase levels; D50.9 Iron deficiency anemia, unspecified
CPT/HCPCS: 36415; 71046; 80053; 81003; 83690; 83880; 84484; 84703; 85025; 85610; 85730; 99284; A9270

== ENCOUNTER 2024-01-08 12:45 | Outpatient (CLI) | payer OTHER, SELFPAY ==
[2024-01-08 14:30] LABS: Hematocrit 44.7 % (37.0-47.0); Hemoglobin 13.9 g/dL (12.0-15.0); Mean Corpuscular HGB Conc 31.1 g/dl (32-36); Mean Corpuscular Hemoglobin 28.6 pg (26-34); Mean Platelet Volume 9.6 fl (7.4-10.4); Platelet Count Result 413 k/mm3 (150-375); Red Blood Count 4.86 M/mm3 (4.2-5.4); Red Cell Distribution Width 12.6 % (11.5-14.5); White Blood Count 7.8 K/mm3 (4.5-10.0)
[2024-01-08 15:51] LABS: Alanine Aminotransferase 54 U/L (6-35); Albumin Level 4.7 g/dL (3.5-5.1); Alkaline Phosphatase 88 U/L (38-126); Anion Gap 9 mmol/L (4-12); Aspartate Amino Transferase 45 U/L (14-36); Bilirubin,Total 0.3 mg/dL (0.2-1.3); Blood Urea Nitrogen 15 mg/dL (7-17); Calcium 9.6 mg/dL (8.4-10.2); Carbon Dioxide 24 mmol/L (22-30); Chloride 103 mmol/L (98-107); Estimated Glomerular Filt Rate > 60; Glucose 124 mg/dL (65-110); Potassium 3.5 mmol/L (3.4-5.0); Sodium 136 mmol/L (137-145)
[2024-01-08 15:52] LABS: Vitamin D 25 Hydroxy 37.1 ng/mL
== END 2024-01-08 12:46 | disposition home or self-care (01) ==
LOC: ANHGOSHLAB 12:47
PROVIDERS: PCP Nurse Practitioner Family; Visit Provider Nurse Practitioner Family
DX: R29.898 Other symptoms and signs involving the musculoskeletal system (principal); R42 Dizziness and giddiness; R51.9 Headache, unspecified; Z13.29 Encounter for screening for other suspected endocrine disorder; E61.1 Iron deficiency; E55.9 Vitamin D deficiency, unspecified
CPT/HCPCS: 36415; 80053; 82306; 82728; 84443; 85027

== ENCOUNTER 2024-01-19 12:50 | Outpatient (CLI) | payer OTHER, SELFPAY ==
--- NOTE | ~2024-01-19 | MR_ITS ---
EXAMINATION: MR brain/brain stem wo con DATE: 01/19/2024 13:18 INDICATION: Headache and dizziness TECHNIQUE: Magnetic resonance imaging (MRI) of the brain and brainstem was performed without intraven ous contrast. Sequences included sagittal and axial T1-weighted SE, axial diffusion-weighted FS SE, a xial 3D SWAN, axial T2-weighted FLAIR, and axial T2-weighted FSE. Apparent diffusion coefficient (ADC ) maps were created. COMPARISON: None. FINDINGS: There are no areas of restricted diffusion to suggest acute infarction. No intracranial hemorrhage or abnormal intracranial mass lesion. There are no intraparenchymal signal abnormalities seen on the ot her pulse sequences. The ventricles are symmetric and normal in size. There are no abnormal extra-axi al fluid collections. Flow voids are seen in the cerebral arteries on the T2-weighted sequences consi stent with their expected patency. Visualized orbits and soft tissues are unremarkable. IMPRESSION: 1. Normal brain MR. Reviewed, dictated and finalized at location B. [employer] IMPRESSION: 1. Normal brain MR.
== END 2024-01-19 12:51 | disposition home or self-care (01) ==
LOC: GOSHIMG 12:51
PROVIDERS: PCP Family Medicine; Visit Provider Nurse Practitioner Family
DX: R51.9 Headache, unspecified (principal); R42 Dizziness and giddiness
CPT/HCPCS: 70551